=== PATIENT | female | born 1995 ===

== ENCOUNTER 2023-10-05 09:00 | Outpatient (RCR) | payer OTHER, SELFPAY | END 2023-10-18 09:42 | disposition home or self-care (01) | LOC: HO.PT 09:00 | PROVIDERS: PCP Nurse Practitioner Family; Visit Provider Family Medicine | DX: M25.511 Pain in right shoulder (principal); M25.512 Pain in left shoulder; S39.012A Strain of muscle, fascia and tendon of lower back, initial encounter; S16.1XXA Strain of muscle, fascia and tendon at neck level, initial encounter | CPT/HCPCS: 97014; 97110; 97140; 97161 ==

== ENCOUNTER 2023-11-11 10:00 | Outpatient (RCR) | payer OTHER, SELFPAY | END 2023-12-13 10:23 | disposition home or self-care (01) | LOC: HO.PT 10:00 | PROVIDERS: PCP Nurse Practitioner Family; Visit Provider Family Medicine | DX: S39.012A Strain of muscle, fascia and tendon of lower back, initial encounter (principal) | CPT/HCPCS: 97110; 97112; 97161; 97530 ==